=== PATIENT | male | born 2000 | race Caucasian/White ===

== ENCOUNTER 2021-04-10 11:39 | Outpatient (REF) | payer SELFPAY | END 2021-04-10 11:40 | disposition home or self-care (01) | LOC: HO.LAB 11:39 | PROVIDERS: Visit Provider Internal Medicine | DX: Z13.89 Encounter for screening for other disorder (principal) ==

== ENCOUNTER 2023-08-26 15:52 | Outpatient (REF) | payer BC, SELFPAY | END 2023-08-26 15:53 | disposition home or self-care (01) | LOC: HO.HOSX 15:52 | PROVIDERS: Visit Provider Physical Medicine & Rehabilitation | DX: Z13.89 Encounter for screening for other disorder (principal) ==

== ENCOUNTER 2023-10-01 10:06 | Outpatient (REF) | payer BC, SELFPAY | END 2023-10-01 10:07 | disposition home or self-care (01) | LOC: HO.HOSX 10:06 | PROVIDERS: Visit Provider Physical Medicine & Rehabilitation | DX: Z13.89 Encounter for screening for other disorder (principal) ==